=== PATIENT | female | born 1955 | race Caucasian/White ===

== ENCOUNTER → 2018-03-06 | Outpatient (CLI) | payer OTHER ==
[~2018-03-06] MED LIST: IOHEXOL 350 MG/ML 100ML IJ ONE
[2018-03-06 09:10] VITALS: BP 187/79
[2018-03-06 10:15] VITALS: BP 192/80
[2018-03-06 12:40] LABS: BUN/Creatinine Ratio 23.4; Calcium 9.8 mg/dL (8.5-10.1); Potassium 3.9 mmol/L (3.5-5.1)
== END | disposition home or self-care (01) ==
LOC: Rad HDHVI 08:12
PROVIDERS: ATTEND Internal Medicine Cardiovascular Disease
DX: I10 Essential (primary) hypertension (principal); E11.9 Type 2 diabetes mellitus without complications; R94.31 Abnormal electrocardiogram [ECG] [EKG]; R06.02 Shortness of breath
CPT/HCPCS: 36415; 74175; 80048; 82565; 93306; G0463; Q9967

== ENCOUNTER → 2018-09-05 | Outpatient (CLI) | payer OTHER ==
[2018-09-05 15:48] VITALS: BP 151/56
== END | disposition home or self-care (01) ==
LOC: Rad HDHVI 15:35
PROVIDERS: ATTEND Internal Medicine Cardiovascular Disease
DX: I48.91 Unspecified atrial fibrillation (principal); R06.02 Shortness of breath
CPT/HCPCS: 82565; G0463; Q9967

== ENCOUNTER → 2018-09-06 | Outpatient (CLI) | payer OTHER | END | disposition home or self-care (01) | LOC: XY 11:55 | PROVIDERS: ATTEND Internal Medicine | DX: I51.7 Cardiomegaly (principal); R53.83 Other fatigue; R06.02 Shortness of breath | CPT/HCPCS: 78582; A9540; A9558 ==

== ENCOUNTER → 2018-09-16 | Outpatient (CLI) | payer OTHER ==
[~2018-09-16] VITALS: Ht 162.6 cm; Wt 99.8 kg
[~2018-09-16] MED LIST changes: +ADENOSINE 84 MG in GIVE UN-DILUTED 0 ML IV ONE; +ADENOSINE 90 MG/30 ML INJ IV ONE; -IOHEXOL 350 MG/ML 100ML IJ ONE
== END | disposition home or self-care (01) ==
LOC: Rad HDHVI 14:27
PROVIDERS: ATTEND Internal Medicine Cardiovascular Disease
DX: I48.0 Paroxysmal atrial fibrillation (principal); J44.9 Chronic obstructive pulmonary disease, unspecified; I50.33 Acute on chronic diastolic (congestive) heart failure; E11.9 Type 2 diabetes mellitus without complications
CPT/HCPCS: 78452; 93005; 96374; 96375; A9500; J0153

== ENCOUNTER → 2019-04-28 | Outpatient (CLI) | payer OTHER ==
[2019-04-28 16:13] LABS: Magnesium 2.1 mg/dL (1.6-2.6); Potassium 4.5 mmol/L (3.5-5.1)
== END | disposition home or self-care (01) ==
LOC: LAB 13:57
PROVIDERS: ATTEND Internal Medicine Cardiovascular Disease
DX: E87.5 Hyperkalemia (principal); E83.40 Disorders of magnesium metabolism, unspecified; Z79.899 Other long term (current) drug therapy
CPT/HCPCS: 36415; 83735; 84132

== ENCOUNTER 2020-10-29 00:33 | Inpatient (IN) | payer MEDICARE, OTHER ==
[~2020-10-29] VITALS: Ht 162.6 cm; Wt 102.1 kg
[2020-10-29] MEDS ORDERED: SODIUM CHLORIDE 0.9% 1,000 ML IV ONE ×2 (01:45→05:30)
[2020-10-29 03:24] LABS: Lactic Acid w/Reflex 3.9 mmol/L (0.4-2.0)
[2020-10-29 03:26] LABS: Potassium 4.4 mmol/L (3.5-5.1)
[2020-10-29 03:29] LABS: Basophils # (auto) 0 10 ^3/uL (0-0.2); Basophils % (auto) 0.3 % (0.0-2.0); Eosinophils # (auto) 0 10 ^3/uL (0-0.8); Eosinophils % (auto) 0.3 % (0.0-7.0); Hematocrit 28.8 % (36.0-46.0); Lymphocytes # (auto) 1.8 10 ^3/uL (0.4-5.4); Mean Corpuscular Hemoglobin 31.7 pg (28.0-32.0); Mean Corpuscular Hgb Conc. 34.7 g/dL (32.0-36.0); Mean Corpuscular Volume 91.5 fL (80.0-100.0); Monocytes # (auto) 0.6 10 ^3/uL (0-1.3); Monocytes % (auto) 3.9 % (0.0-12.0); Neutrophils # (auto) 14.1 10 ^3/uL (1.6-8.6); Neutrophils % (auto) 84.5 % (37.0-80.0); Platelet Count (auto) 353 10^3/uL (140-450); Red Blood Cells 3.15 10^6/uL (4.0-5.20); Red Cell Distribution Width 13.6 % (11.8-14.3); White Blood Cell 16.7 10^3/uL (4.4-10.8)
[2020-10-29 03:35] LABS: BUN/Creatinine Ratio 20.3; Bilirubin, Total 0.2 mg/dL (0.2-1.0); Calcium 9.1 mg/dL (8.5-10.1)
[2020-10-29 06:30] LABS: Hematocrit 27.6 % (36.0-46.0); Hemoglobin 9.2 g/dL (12.2-16.2)
[2020-10-29 06:41] LABS: Lactic Acid w/Reflex 3.4 mmol/L (0.4-2.0)
[2020-10-29] MEDS ORDERED: MORPHINE SULF INJ 2 MG/ML SYRINGE 1ML IV PRN ×3 (09:00→10:45)
[2020-10-29] MEDS ORDERED: NITROGLYCERIN 0.4 MG SL TAB SL PRN ×2 (09:00→10:45)
[2020-10-29] MEDS ORDERED: IOHEXOL 350 MG/ML 100ML IJ ONE (09:14)
[2020-10-29] MEDS ORDERED: CHOL135C10 PO (10:10)
[2020-10-29] MEDS ORDERED: INSU75IN2 SC (10:10)
[2020-10-29] MEDS ORDERED: METF-489 PO (10:10)
[2020-10-29] MEDS ORDERED: THYR30TA PO (10:10)
[2020-10-29] MEDS ORDERED: AZIL40TA2 PO (10:10)
[2020-10-29] MEDS ORDERED: NEBI20TA2 PO (10:10)
[2020-10-29] MEDS ORDERED: CYAN1SUB5 SL (10:15)
[2020-10-29] MEDS ORDERED: COEN400C8 PO (10:15)
[2020-10-29] MEDS ORDERED: GARL200T PO (10:15)
[2020-10-29] MEDS ORDERED: MAGN400T40 PO (10:15)
[2020-10-29] MEDS ORDERED: CALCTAB78 PO (10:15)
[2020-10-29] MEDS ORDERED: [UNRECOGNIZED DRUG - CODE] PO (10:15)
[2020-10-29 10:40] LABS: INR 1.05 (0.9-1.15)
[2020-10-29] MEDS ORDERED: metroNIDAZOLE 500MG/100ML 100 ML IV ONE (10:45)
[2020-10-29] MEDS ORDERED: INFLUENZA QUAD 2020-2021 0.5 ML SYRG IM ONE (10:45)
[2020-10-29] MEDS ORDERED: ALUM & MAG HYDROX-SIMETH LIQ(MAALOX) 30 ML PO PRN (10:45)
[2020-10-29] MEDS ORDERED: ONDANSETRON HCL 4 MG/2 ML VIAL IV PRN (10:45)
[2020-10-29] MEDS ORDERED: PANTOPRAZOLE 40 MG/10 ML VIAL INJ IV ONE (10:45)
[2020-10-29] MEDS ORDERED: SODIUM CHLORIDE 0.9% 1,000 ML IV SCH (10:45)
[2020-10-29] MEDS ORDERED: ACETAMINOPHEN 325 MG TAB PO PRN (10:45)
[2020-10-29] MEDS ORDERED: cefTRIAXone 1GM/50ML D5W 50 ML IV ONE (10:45)
[2020-10-29] MEDS ORDERED: PNEUMOCOCCAL VACC POLYS 25 MCG/0.5 ML VIAL IM ONE (10:45)
[2020-10-29] MEDS ORDERED: LORazepam 0.5 MG TAB PO PRN (10:45)
[2020-10-29] MEDS ORDERED: DOCUSATE SOD 100 MG CAP PO PRN (10:45)
[2020-10-29] MEDS ORDERED: HYDROcodone-ACET 5/325MG TAB PO PRN (10:45)
[2020-10-29] MEDS ORDERED: fentaNYL CITRATE 100 MCG/2 ML VL ONE (13:35)
[2020-10-29] MEDS ORDERED: MIDAZOLAM HCL 5 MG/ML-1ML VIAL ONE (13:35)
[2020-10-29] MEDS ORDERED: LIDOCAINE VISCOUS 2% 15ML UD ONE (13:35)
[2020-10-29] MEDS ORDERED: SODIUM CHLORIDE LOCK 10 ML ONE (13:35)
[2020-10-29] MEDS ORDERED: diphenhdrAMINE HCL 50 MG/1 ML VL ONE (13:35)
[2020-10-29] MEDS: metroNIDAZOLE 500MG/100ML 100 ML IV SCH (14:00)
[2020-10-29 16:21] LABS: Basophils # (auto) 0 10 ^3/uL (0-0.2); Lymphocytes # (auto) 1.9 10 ^3/uL (0.4-5.4); Monocytes # (auto) 0.8 10 ^3/uL (0-1.3); Neutrophils # (auto) 6.9 10 ^3/uL (1.6-8.6); Red Blood Cells 2.42 10^6/uL (4.0-5.20)
[2020-10-29 16:24] LABS: Basophils % (auto) 0.4 % (0.0-2.0); Eosinophils # (auto) 0 10 ^3/uL (0-0.8); Eosinophils % (auto) 0.5 % (0.0-7.0); Hematocrit 22.8 % (36.0-46.0); Hemoglobin 7.9 g/dL (12.2-16.2); Lymphocytes % (auto) 20.1 % (10.0-50.0); Mean Corpuscular Hemoglobin 32.8 pg (28.0-32.0); Mean Corpuscular Hgb Conc. 34.9 g/dL (32.0-36.0); Mean Corpuscular Volume 94.1 fL (80.0-100.0); Monocytes % (auto) 7.9 % (0.0-12.0); Neutrophils % (auto) 71.1 % (37.0-80.0); Platelet Count (auto) 232 10^3/uL (140-450); Red Cell Distribution Width 13.9 % (11.8-14.3); White Blood Cell 9.7 10^3/uL (4.4-10.8)
[2020-10-29] MEDS ORDERED: hydrALAZINE HCL 20 MG/ML VL IV PRN (17:15)
[2020-10-29] MEDS ORDERED: DEXTROSE (50%) 50ML SYRG IV PRN (17:15)
[2020-10-29] MEDS ORDERED: LACTATED RINGER'S 1,000 ML IV ONE (17:15)
[2020-10-29] MEDS ORDERED: diphenhdrAMINE HCL 25 MG CAP PO ONE (17:15)
[2020-10-29] MEDS ORDERED: SUCRALFATE 1 GM TAB PO ONE (17:30)
[2020-10-29 20:28] VITALS: BP 187/78
[2020-10-29 20:50] VITALS: BP 185/69
[2020-10-29] MEDS ORDERED: CARVEDILOL 3.125 MG TAB PO SCH (22:00)
[2020-10-29] MEDS ORDERED: InsuLIN REG 1unit/0.01ml Soln (100units/ml) SC SCH (22:00)
[2020-10-29] MEDS ORDERED: SUCRALFATE 1 GM TAB PO SCH (22:00)
[2020-10-29 22:01] LABS: Urine Bacteria NONE SEEN /hpf (None Seen); Urine Blood 1+ /uL (Negative); Urine Specific Gravity 1.008 (1.001-1.035); Urine WBC 17 /hpf (0 - 5)
[2020-10-29 22:08] LABS: Alcohol, Urine < 3.0 mg/dL (0-10); Amphetamine Screen, Urine NEGATIVE (NEGATIVE); Barbiturate Scree,Urine NEGATIVE (NEGATIVE); Benzodiazephine Screen, Urine POSITIVE (NEGATIVE); Cannabinoid Screen, Urine NEGATIVE (NEGATIVE); Cocaine Screen, Urine NEGATIVE (NEGATIVE); Opiate Scree,Urine NEGATIVE (NEGATIVE); Phencyclidine Screen, Urine NEGATIVE (NEGATIVE)
[2020-10-29] MEDS: ACCU-CHEK COMFORT CURVE STRIP VI SCH (22:22)
[2020-10-29] MEDS: SODIUM CHLORIDE 0.9% 1,000 ML IV SCH (22:36)
[2020-10-29 22:38] VITALS: BP 188/76
[2020-10-30] MEDS: metroNIDAZOLE 500MG/100ML 100 ML IV SCH ×2 (00:15→04:55)
[2020-10-30] MEDS: SODIUM CHLORIDE 0.9% 1,000 ML IV SCH (04:43)
[2020-10-30 06:32] VITALS: BP 165/83
[2020-10-30] MEDS ORDERED: InsuLIN REG 1unit/0.01ml Soln (100units/ml) SC SCH (07:00)
[2020-10-30] MEDS ORDERED: LEVOTHYROXINE SODIUM 25 MCG TAB PO SCH (07:00)
[2020-10-30] MEDS: ACCU-CHEK COMFORT CURVE STRIP VI SCH (07:30)
[2020-10-30] MEDS ORDERED: cefTRIAXone 1GM/50ML D5W 50 ML IV SCH (09:00)
[2020-10-30] MEDS ORDERED: PANTOPRAZOLE 40 MG/10 ML VIAL INJ IV SCH (10:00)
== END 2020-10-30 09:15 | disposition left against medical advice (07) | DRG 378 ==
LOC: ER 00:33 → EDBD 00:33 → OVERFLOW 00:34
PROVIDERS: ADMIT Hospitalist; ATTEND Hospitalist
PROC: 0DB68ZX Excision of Stomach, Via Natural or Artificial Opening Endoscopic, Diagnostic (ICD-10-PCS; 2020-10-29)
PROC: 0DB88ZX Excision of Small Intestine, Via Natural or Artificial Opening Endoscopic, Diagnostic (ICD-10-PCS; 2020-10-29)
PROC: 30233N1 Transfusion of Nonautologous Red Blood Cells into Peripheral Vein, Percutaneous Approach (ICD-10-PCS; principal; 2020-10-29 14:25)
DX: K29.91 Gastroduodenitis, unspecified, with bleeding (principal); E44.1 Mild protein-calorie malnutrition; N17.9 Acute kidney failure, unspecified; K26.4 Chronic or unspecified duodenal ulcer with hemorrhage; I25.2 Old myocardial infarction; J44.9 Chronic obstructive pulmonary disease, unspecified; E66.9 Obesity, unspecified; Z20.828 Contact with and (suspected) exposure to other viral communicable diseases; K52.9 Noninfective gastroenteritis and colitis, unspecified; I13.10 Hypertensive heart and chronic kidney disease without heart failure, with stage 1 through stage 4 chronic kidney disease, or unspecified chronic kidney disease; D64.9 Anemia, unspecified; N18.9 Chronic kidney disease, unspecified; E11.22 Type 2 diabetes mellitus with diabetic chronic kidney disease; E78.5 Hyperlipidemia, unspecified; E11.40 Type 2 diabetes mellitus with diabetic neuropathy, unspecified; I25.10 Atherosclerotic heart disease of native coronary artery without angina pectoris; K44.9 Diaphragmatic hernia without obstruction or gangrene; K29.81 Duodenitis with bleeding; K29.61 Other gastritis with bleeding; K25.4 Chronic or unspecified gastric ulcer with hemorrhage; Z53.29 Procedure and treatment not carried out because of patient's decision for other reasons; Z91.040 Latex allergy status; Z88.8 Allergy status to other drugs, medicaments and biological substances; Z91.041 Radiographic dye allergy status; Z28.21 Immunization not carried out because of patient refusal; Z95.0 Presence of cardiac pacemaker; Z79.899 Other long term (current) drug therapy; Z90.49 Acquired absence of other specified parts of digestive tract
CPT/HCPCS: 36415; 43239; 74176; 80053; 80061; 80307; 81001; 82962; 83036; 83605; 84484; 85014; 85018; 85025; 85610; 85730; 86850; 86900; 86901; 86920; 87040; 87086; 87426; 93005; 96360; 96361; C9113; G0378; J0696; J2250; J3490